=== PATIENT | female | born 1930 | race Caucasian/White ===

== ENCOUNTER 2019-05-07 18:31 | Emergency (ER) | payer OTHER ==
[2019-05-07] MEDS ORDERED: NA CHLORIDE 0.9% 1,000 ML ONE (19:06)
[2019-05-07 19:34] LABS: Absolute Lymphocytes (CBC) 1.4 K/uL (0.7-4.9); Basophils % 0.8 % (0-1.3); Hematocrit 40.6 % (36.0-45.0); Lymphocytes % 19.9 % (15.3-44.8); MPV 9.5 fL (7.6-11.3); RBC Red Blood Cell Count 4.56 M/uL (3.86-4.86)
--- NOTE | 2019-05-07 19:37 | RAD REPORT ---
EXAM DESCRIPTION: CT - CTHCSPWOC - 05/07/2019 7:26 pm CLINICAL HISTORY: Trauma, head and neck injury. WEAKNESS COMPARISON: [id number] dated 11/21/2012; CT HEAD CSPINE MPR WO CONTRAST dated 11/21/2012 TECHNIQUE: Axial 5 mm thick images of the head were obtained. Axial 2 mm thick images of the cervical spine were obtained with sagittal and coronal reconstruction images generated and reviewed. All CT scans are performed using dose optimization technique as appropriate and may include automated exposure control or mA/KV adjustment according to patient size. FINDINGS: CT HEAD WITHOUT CONTRAST: No acute hemorrhage, hydrocephalus or extra-axial collection is identified.Advanced generalized brain atrophy is present with advanced periventricular and deep white matter chronic microvascular ischemi c changes.No areas of brain edema or midline shift. The paranasal sinuses and mastoids are clear.The calvarium is intact. CT CERVICAL SPINE WITHOUT CONTRAST: No fracture or subluxation.Moderate lower cervical degenerative changes present at C4-5, C5-6 and C6- 7 with large posterior osteophytes.No prevertebral soft tissues swelling is identified. IMPRESSION: No acute intracranial or cervical spine findings. Moderate lower cervical spondylosis.
[2019-05-07 19:38] LABS: Protime INR 1.01
--- NOTE | 2019-05-07 19:41 | RAD REPORT ---
EXAM DESCRIPTION: RAD - Chest Single View - 05/07/2019 7:35 pm CLINICAL HISTORY: COUGH Chest pain. COMPARISON: Chest Single View dated 11/19/2016; CHEST SINGLE VIEW dated 11/25/2012; CHEST SINGLE VIEW dated 11/23/2012; CHEST PA AND LAT 2 VIEW dated 11/21/2012 FINDINGS: Portable technique limits examination quality. The lungs are grossly clear. The heart is prominent size. No displaced fractures.Old proximal right h umerus deformity. IMPRESSION: No acute intrathoracic process suspected.
[2019-05-07 19:53] LABS: Albumin 3.3 g/dL (3.4-5.0); Bilirubin Direct 0.2 mg/dL (0-0.2); Bilirubin Total 0.8 mg/dL (0.2-1.0); Magnesium 2.2 mg/dL (1.8-2.4); Potassium 3.9 mmol/L (3.5-5.1); Protein, Total 6.8 g/dL (6.4-8.2); Troponin (Emerg Dept Use Only) 0.02 ng/mL (0.0-0.045)
--- NOTE | 2019-05-07 20:48 | ER ---
Nurse's Notes [facility] Name: Rossy Chirinos Age: 89 yrs Sex: Female : 1930 Arrival Date: 05/07/2019 Time: 18:35 Bed 30 Private MD: Diagnosis: Altered mental status, unspecified;Dementia in other diseases classified elsewhere;Repeated falls;Urinary tract infection, site not specified Presentation: 05/07 18:39 Presenting complaint: Child states: "She has dementia that's been getting worse for 8 aj1 years, she lives alone, but we have cameras to watch her, when I checked the camera this morning she had fallen so I ran over there to help. I noticed this morning she is talking more today than she has in the past 8 years, and I think she might have had a stroke because she'll be talking about one thing and then she will start talking about something else and she has just not been herself today" Patient last known normal was yesterday at noon. Patient denies pain. Denies weakness, numbness, tingling. Transition of care: patient was not received from another setting of care. Onset of symptoms was May 07, 2019. Risk Assessment: Do you want to hurt yourself or someone else? Patient reports no desire to harm self or others. Initial Sepsis Screen: Does the patient meet any 2 criteria? No. Patient's initial sepsis screen is negative. Does the patient have a suspected source of infection? No. Patient's initial sepsis screen is negative. Care prior to arrival: None. 18:39 Method Of Arrival: Wheelchair aj1 18:39 Acuity: KEYON 3 aj1 Triage Assessment: 18:42 General: Appears in no apparent distress. comfortable, Behavior is calm, cooperative. aj1 Pain: Denies pain. Neuro: Level of Consciousness is awake, alert. Cardiovascular: Patient's skin is warm and dry. Respiratory: Airway is patent Respiratory effort is even, unlabored, Respiratory pattern is regular, symmetrical. Historical: - Allergies: 18:42 Codeine; aj1 18:42 Doxycycline; aj1 18:42 Levaquin; aj1 - PMHx: 18:42 Diabetes - NIDDM; Hyperlipidemia; Hypertension; aj1 - Immunization history:: Flu vaccine is up to date. - Social history:: Smoking status: Patient/guardian denies using tobacco. - Ebola Screening: : Patient denies travel to an Ebola-affected area in the 21 days before illness onset. - Family history:: not pertinent. Screenin:23 Abuse screen: Denies threats or abuse. Denies injuries from another. Nutritional rr5 screening: No deficits noted. Tuberculosis screening: No symptoms or risk factors identified. Fall Risk Fall in past 12 months (25 points). Secondary diagnosis (15 points) dementia, IV access (20 points). Ambulatory Aid- Crutches/Cane/Walker (15 pts). Gait- Impaired (20 pts.). Mental Status- Overestimates/Forgets Limitations (15 pts.). Total Montejo Fall Scale indicates High Risk Score (45 or more points). Fall prevention measures have been instituted. Side Rails Up X 2 Placed Close to Nursing Station Frequent Obs/Assessments Occuring Family Present and informed to notify staff if the need to leave the bedside As available patient and family educated on Fall Prevention Program and Strategies. Assessment: 19:20 General: Appears in no apparent distress. comfortable, Behavior is calm, cooperative. rr5 Pain: Denies pain. Neuro: Level of Consciousness is awake, alert, obeys commands, Oriented to person, Reports buckle sewer machine stated she fell down, denies LOC. Cardiovascular: Capillary refill < 3 seconds Patient's skin is warm and dry. Respiratory: Airway is patent Respiratory effort is even, unlabored, Respiratory pattern is regular, symmetrical. GI: No signs and/or symptoms were reported involving the gastrointestinal system. : No signs and/or symptoms were reported regarding the genitourinary system. EENT: No signs and/or symptoms were reported regarding the EENT system. Derm: Skin is intact, Skin temperature is warm. Musculoskeletal: Capillary refill < 3 seconds. 20:15 Reassessment: Patient appears in no apparent distress at this time. Patient and/or rr5 family updated on plan of care and expected duration. Pain level reassessed. awaiting for review. 21:29 Reassessment: Patient appears in no apparent distress at this time. ED provider aware rr5 for the orthostatic result. discharge instruction to buckle sewer machine given and explained without complaints made. Patient states symptoms have improved. Vital Signs: 18:42 BP 157 / 88; Pulse 79; Resp 18; Temp 98.2; Pulse Ox 95% on R/A; Weight 71.21 kg (R); aj1 Height 5 ft. 4 in. (162.56 cm) (R); Pain 0/10; 19:00 BP 161 / 85; Pulse 80; Resp 17; Temp 98; Pulse Ox 98% ; Pain 0/10; rr5 20:43 BP 155 / 79; Pulse 75; Resp 16; Pulse Ox 99% ; rr5 21:15 BP 163 / 87 Supine; Pulse 76; Resp 17; Pulse Ox 99% ; rr5 21:16 BP 174 / 116 Sitting; Pulse 85; Resp 16; Pulse Ox 100% ; rr5 21:17 BP 190 / 104 Standing; Pulse 88; Resp 17; Pulse Ox 100% ; rr5 18:42 Body Mass Index 26.95 (71.21 kg, 162.56 cm) aj1 ED Course: 18:35 Patient arrived in ED. as 18:41 Triage completed. aj1 18:42 Arm band placed on Patient placed in an exam room. aj1 18:56 Rogelio Hair MD is Attending Physician. edgar 19:03 Cy Vincent RN is Primary Nurse. rr5 19:20 Patient has correct armband on for positive identification. Placed in gown. Bed in low rr5 position. Call light in reach. Side rails up X2. radiation monitor on. Pulse ox on. NIBP on. 19:20 Inserted saline lock: 20 gauge in right forearm, using aseptic technique. Blood rr5 collected. 19:26 CT Head C Spine In Process Unspecified. EDMS 19:34 XRAY Chest (1 view) In Process Unspecified. EDMS 20:44 Urine collected: straight cath specimen, clear, Amount Returned: 200mL. rr5 20:47 Freddy Bear MD is Referral Physician. edgar 21:31 No provider procedures requiring assistance completed. IV discontinued, intact, rr5 bleeding controlled, No redness/swelling at site. Pressure dressing applied. Administered Medications: 19:40 Drug: NS 0.9% 1000 ml Route: IV; Rate: 125 ml/hr; Site: right forearm; rr5 21:32 Follow up: Response: No adverse reaction; IV Status: Order to discontinue infusion; IV rr5 Intake: 250ml 21:00 Drug: Rocephin 1 grams Route: IV; Rate: per protocol; Site: right forearm; rr5 21:33 Follow up: Response: No adverse reaction; IV Status: Completed infusion; IV Intake: [id number] Intake: 21:32 IV: 250ml; Total: 250ml. rr5 21:33 IV: 10ml; Total: 260ml. rr5 Outcome: 20:48 Discharge ordered by . edgar 21:31 Discharged to home via wheelchair, with family. rr5 21:31 Condition: stable 21:31 Discharge instructions given to family, Instructed on discharge instructions, follow up and referral plans. medication usage, Demonstrated understanding of instructions, follow-up care, medications, Prescriptions given X 1. 21:33 Patient left the ED. rr5 Signatures: Dispatcher [employer] EDChloe Eller RN RN aj1 Rogelio Hair MD MD cha Martinez, Amelia as Roque, Raymond, GARCIA RN rr5 Corrections: (The following items were deleted from the chart) 21:29 20:43 BP 114 / 79; Pulse 75bpm; Resp 16bpm; Pulse Ox 99%; rr5 rr5
--- NOTE | 2019-05-07 20:48 | EDPHYS ---
Physician Documentation [facility] Name: Rossy Chirinos Age: 89 yrs Sex: Female : 1930 Arrival Date: 05/07/2019 Time: 18:35 Bed 30 Private MD: ED Physician Rogelio Hair HPI: 05/07 19:52 This 89 yrs old Female presents to ER via Wheelchair with complaints of Fall edgar Injury, Altered Mental Status. 19:52 Details of fall: The patient fell from an upright position, while walking. edgar Historical: - Allergies: 18:42 Codeine; aj1 18:42 Doxycycline; aj1 18:42 Levaquin; aj1 - PMHx: 18:42 Diabetes - NIDDM; Hyperlipidemia; Hypertension; aj1 - Immunization history:: Flu vaccine is up to date. - Social history:: Smoking status: Patient/guardian denies using tobacco. - Ebola Screening: : Patient denies travel to an Ebola-affected area in the 21 days before illness onset. - Family history:: not pertinent. ROS: 19:52 Constitutional: Negative for fever, chills, and weight loss, Eyes: Negative for injury, edgar pain, redness, and discharge, ENT: Negative for injury, pain, and discharge, Neck: Negative for injury, pain, and swelling, Cardiovascular: Negative for chest pain, palpitations, and edema, Respiratory: Negative for shortness of breath, cough, wheezing, and pleuritic chest pain, Abdomen/GI: Negative for abdominal pain, nausea, vomiting, diarrhea, and constipation, Back: Negative for injury and pain, : Negative for injury, bleeding, discharge, and swelling, MS/Extremity: Negative for injury and deformity, Skin: Negative for injury, rash, and discoloration, Psych: Negative for depression, anxiety, suicide ideation, homicidal ideation, and hallucinations, Allergy/Immunology: Negative for hives, rash, and allergies, Endocrine: Negative for neck swelling, polydipsia, polyuria, polyphagia, and marked weight changes, Hematologic/Lymphatic: Negative for swollen nodes, abnormal bleeding, and unusual bruising. 19:52 Neuro: Positive for altered mental status, weakness. Exam: 20:00 Constitutional: This is a well developed, well nourished patient who is awake, alert, edgar and in no acute distress. Head/Face: Normocephalic, atraumatic. Eyes: Pupils equal round and reactive to light, extra-ocular motions intact. Lids and lashes normal. Conjunctiva and sclera are non-icteric and not injected. Cornea within normal limits. Periorbital areas with no swelling, redness, or edema. ENT: Nares patent. No nasal discharge, no septal abnormalities noted. Tympanic membranes are normal and external auditory canals are clear. Oropharynx with no redness, swelling, or masses, exudates, or evidence of obstruction, uvula midline. Mucous membranes moist. Neck: Trachea midline, no thyromegaly or masses palpated, and no cervical lymphadenopathy. Supple, full range of motion without nuchal rigidity, or vertebral point tenderness. No Meningismus. Chest/axilla: Normal chest wall appearance and motion. Nontender with no deformity. No lesions are appreciated. Cardiovascular: Regular rate and rhythm with a normal S1 and S2. No gallops, murmurs, or rubs. Normal PMI, no JVD. No pulse deficits. Respiratory: Lungs have equal breath sounds bilaterally, clear to auscultation and percussion. No rales, rhonchi or wheezes noted. No increased work of breathing, no retractions or nasal flaring. Abdomen/GI: Soft, non-tender, with normal bowel sounds. No distension or tympany. No guarding or rebound. No evidence of tenderness throughout. Back: No spinal tenderness. No costovertebral tenderness. Full range of motion. Skin: Warm, dry with normal turgor. Normal color with no rashes, no lesions, and no evidence of cellulitis. MS/ Extremity: Pulses equal, no cyanosis. Neurovascular intact. Full, normal range of motion. Neuro: Awake and alert, GCS 15, oriented to person, place, time, and situation. Cranial nerves II-XII grossly intact. Motor strength 5/5 in all extremities. Sensory grossly intact. Cerebellar exam normal. Normal gait. Psych: Awake, alert, with orientation to person, place and time. Behavior, mood, and affect are within normal limits. Vital Signs: 18:42 BP 157 / 88; Pulse 79; Resp 18; Temp 98.2; Pulse Ox 95% on R/A; Weight 71.21 kg (R); aj1 Height 5 ft. 4 in. (162.56 cm) (R); Pain 0/10; 19:00 BP 161 / 85; Pulse 80; Resp 17; Temp 98; Pulse Ox 98% ; Pain 0/10; rr5 20:43 BP 155 / 79; Pulse 75; Resp 16; Pulse Ox 99% ; rr5 21:15 BP 163 / 87 Supine; Pulse 76; Resp 17; Pulse Ox 99% ; rr5 21:16 BP 174 / 116 Sitting; Pulse 85; Resp 16; Pulse Ox 100% ; rr5 21:17 BP 190 / 104 Standing; Pulse 88; Resp 17; Pulse Ox 100% ; rr5 18:42 Body Mass Index 26.95 (71.21 kg, 162.56 cm) aj1 MDM: 18:56 Patient medically screened. [facility] 20:00 Data reviewed: vital signs, nurses notes, lab test result(s), EKG, radiologic studies. [facility] 05/07 19:03 Order name: Basic Metabolic Panel [facility] 05/07 19:03 Order name: CBC with Diff [facility] 05/07 19:03 Order name: LFT's [facility] 05/07 19:03 Order name: Magnesium; Complete Time: 20:01 [facility] 05/07 19:03 Order name: NT PRO-BNP; Complete Time: 20:01 [facility] 05/07 19:03 Order name: PT-INR; Complete Time: 20:01 [facility] 05/07 19:03 Order name: Troponin (emerg Dept Use Only); Complete Time: 20:01 [facility] 05/07 19:03 Order name: XRAY Chest (1 view); Complete Time: 20:01 [facility] 05/07 19:03 Order name: Urine Culture [facility] 05/07 19:03 Order name: Lipase; Complete Time: 20:01 [facility] 05/07 19:03 Order name: Basic Metabolic Panel; Complete Time: 20:01 [facility] 05/07 19:03 Order name: CBC with Automated Diff; Complete Time: 20:01 [facility] 05/07 19:03 Order name: Liver (Hepatic) Function; Complete Time: 20:01 [facility] 05/07 20:52 Order name: Urine Dipstick--Ancillary (enter results) 2 05/07 19:03 Order name: EKG; Complete Time: 19:04 [facility] 05/07 19:03 Order name: Cardiac monitoring; Complete Time: 19:07 [facility] 05/07 19:03 Order name: EKG - Nurse/Tech; Complete Time: 19:04 [facility] 05/07 19:03 Order name: IV Saline Lock; Complete Time: 19:20 [facility] 05/07 19:03 Order name: Labs collected and sent; Complete Time: 19:20 [facility] 05/07 19:03 Order name: O2 Per Protocol; Complete Time: 19:07 [facility] 05/07 19:03 Order name: O2 Sat Monitoring; Complete Time: 19:04 [facility] 05/07 19:03 Order name: CT Head C Spine; Complete Time: 20:01 [facility] 05/07 19:03 Order name: Urine Dipstick-Ancillary (obtain specimen); Complete Time: 20:43 [facility] 05/07 20:51 Order name: Orthostatics; Complete Time: 21:33 [facility] Administered Medications: 19:40 Drug: NS 0.9% 1000 ml Route: IV; Rate: 125 ml/hr; Site: right forearm; rr5 21:32 Follow up: Response: No adverse reaction; IV Status: Order to discontinue infusion; IV rr5 Intake: 250ml 21:00 Drug: Rocephin 1 grams Route: IV; Rate: per protocol; Site: right forearm; rr5 21:33 Follow up: Response: No adverse reaction; IV Status: Completed infusion; IV Intake: [id number] Disposition: 05/07/19 20:48 Discharged to Home. Impression: Altered mental status, unspecified, Dementia in other diseases classified elsewhere, Repeated falls, Urinary tract infection, site not specified. - Condition is Stable. - Discharge Instructions: Confusion, Dementia, Fall Prevention in the Home, Urinary Tract Infection, Adult, Urinary Tract Infection, Adult, [id number], Fall Prevention in the Home, Embk-[id number], Aspirin and Your Heart, Dementia, [id number]. - Prescriptions for Bactrim DS 800- 160 mg Oral Tablet - take 1 tablet by ORAL route every 12 hours for 7 days; 14 tablet. - Medication Reconciliation Form, Thank You Letter, Antibiotic Education, Prescription Opioid Use form. - Follow up: Private Physician; When: 2 - 3 days; Reason: Recheck today's complaints, Continuance of care, Re-evaluation by your physician. Follow up: Freddy Bear; When: 2 - 3 days; Reason: Recheck today's complaints, Continuance of care, Re-evaluation by your physician. - Problem is new. - Symptoms have improved. Signatures: Dispatcher [employer] EDChloe Eller, RN RN aj1 Rogelio Hair MD MD cha Roque, Raymond RN RN rr5 Corrections: (The following items were deleted from the chart) 21:33 20:48 05/07/2019 20:48 Discharged to Home. Impression: Altered mental status, rr5 unspecified; Dementia in other diseases classified elsewhere; Repeated falls; Urinary tract infection, site not specified. Condition is Stable. Discharge Instructions: Confusion, Dementia, Fall Prevention in the Home, Fall Prevention in the Home, [id number]-[id number]-Hknz, Aspirin and Your Heart, Dementia, [id number]. Forms are Medication Reconciliation Form, Thank You Letter, Antibiotic Education, Prescription Opioid Use. Follow up: Private Physician; When: 2 - 3 days; Reason: Recheck today's complaints, Continuance of care, Re-evaluation by your physician. Follow up: Freddy Bear; When: 2 - 3 days; Reason: Recheck today's complaints, Continuance of care, Re-evaluation by your physician. Problem is new. Symptoms have improved. edgar
[2019-05-07 20:57] LABS: Urine Blood NEGATIVE (NEG); Urine Glucose NEGATIVE (NEG); Urine Protein 1+ (NEG); Urine Specific Gravity >1.030 (1.005-1.030); Urine pH 5.5 (5.0-7.0)
[2019-05-07] MEDS ORDERED: CEFTRIAXONE/SWI 1gm 1 GM/10 ML SYR ONE (20:59)
[2019-05-07 22:12] VITALS: TEMP 98
[2019-05-07 22:17] VITALS: O2SAT 100
[2019-05-07 22:19] VITALS: BP 190/104
--- NOTE | 2019-05-08 10:35 | EKG ---
Test Date: 2019-05-07 Test Time: 18:55:11 Stock Holder: MERCED MEASUREMENT RESULTS: Intervals: Rate: 80 TX: 212 QRSD: 92 QT: 420 QTc: 484 [place]en: P: 67 TX: 212 QRS: 34 T: 40 INTERPRETIVE STATEMENTS: Sinus rhythm with 1st degree AV block with premature atrial complexes Otherwise normal ECG Compared to ECG 11/19/2016 15:45:46 Atrial premature complex(es) now present Myocardial infarct finding no longer present Electronically Signed On 05-08-19 10:33:38 DIGITAL CONTENT MANAGER by Donald Beltran
== END 2019-05-07 21:33 | disposition home or self-care (01) ==
LOC: ER 18:31
DX: R41.82 Altered mental status, unspecified (principal); F03.90 Unspecified dementia, unspecified severity, without behavioral disturbance, psychotic disturbance, mood disturbance, and anxiety; N39.0 Urinary tract infection, site not specified; R29.6 Repeated falls; Z88.6 Allergy status to analgesic agent; Z88.3 Allergy status to other anti-infective agents; Z88.1 Allergy status to other antibiotic agents
CPT/HCPCS: 96365; 96361; 93005; 87088; 85025; 87086; 80048; 36415; 83735; 85610; 80076; 81003; 84484; 83690; 83880; 70450; 72125; 71045; 99284; J0696; J7030